=== PATIENT | male | born 1985 | race American Indian/Alaskan Native ===

== ENCOUNTER 2018-11-23 02:45 | Emergency (ER) | payer SELFPAY ==
[~2018-11-23] VITALS: Ht 167.6 cm; Wt 75.0 kg
[2018-11-23] MEDS ORDERED: HYDROCODONE/ACETAMINOPHEN 5/325MG TABLET PO ONE (04:30)
[2018-11-23] MEDS ORDERED: KETOROLAC 30MG/ML VIAL IM ONE (04:30)
[2018-11-23 06:20] VITALS: BP 122/84
== END 2018-11-23 06:21 | disposition home or self-care (01) ==
LOC: ER 02:45
DX: S39.012A Strain of muscle, fascia and tendon of lower back, initial encounter (principal); K59.00 Constipation, unspecified; X50.0XXA Overexertion from strenuous movement or load, initial encounter; Y93.89 Activity, other specified; Y92.69 Other specified industrial and construction area as the place of occurrence of the external cause; Y99.8 Other external cause status
CPT/HCPCS: 72100; 96372; 99283; J1885